=== PATIENT | female | born 1975 | race Caucasian/White ===

== ENCOUNTER 2018-10-04 23:40 | Emergency (ER) | payer MEDICAID, OTHER ==
[~2018-10-04] VITALS: Ht 165.1 cm; Wt 85.4 kg
[2018-10-04 23:50] VITALS: BP 138/80
--- NOTE | 2018-10-04 23:50 | NUR ---
TO BED # 12 AMBULATORY, REPORT GIVEN TO CRISSY ALVAREZ
--- NOTE | 2018-10-04 23:57 | NUR ---
PT TO ED WITH C/O CP X 4 DAYS. PT REPORTS PAIN RADIATING TO L SHOULDER AND NECK. PT DENIES SOB AT THIS TIME. NO EDEMA NOTED. CAP REFILL <3 SECONDS. PT DENIES INJURY OR TRAUMA. PT PLACED INTO BED, PENDING MD JACKSON.
[2018-10-05] MEDS ORDERED: MORPHINE SULFATE 4 MG/ML SYR IM ONE
[2018-10-05] MEDS ORDERED: ASPIRIN 325 MG TAB PO ONE
--- NOTE | 2018-10-05 | NUR ---
PATIENT REFUSED MORPHINE AT THIS TIME, ER MD DR. RUBIO NOTIFIED.
[2018-10-05 00:09] LABS: BASOPHILS # (AUTO) 0.1 K/uL (0.00-0.22); BASOPHILS % (AUTO) 0.7 % (0.0-2.0); EOSINOPHILS # (AUTO) 0.1 K/uL (0-0.4); EOSINOPHILS % (AUTO) 1.9 % (0.0-4.0); HEMATOCRIT 38.4 % (36-48); HEMOGLOBIN 12.7 g/dL (12.0-16.0); LYMPHOCYTES # (AUTO) 2.9 K/uL (2.5-16.5); LYMPHOCYTES % (AUTO) 38.4 % (20.5-51.1); MEAN CORPUSCULAR HEMOGLOBIN 28 pg (27-31); MEAN CORPUSCULAR HGB CONC 33 g/dL (33-37); MEAN CORPUSCULAR VOLUME 85.4 fL (80-94); MONOCYTES # (AUTO) 0.9 K/uL (0.8-1.0); MONOCYTES % (AUTO) 11.7 % (1.7-9.3); NEUTROPHILS # (AUTO) 3.6 K/uL (1.8-7.7); NEUTROPHILS % (AUTO) 47.3 % (42.2-75.2); PLATELET COUNT (AUTO) 200 K/uL (140-450); RED CELL DISTRIBUTION WIDTH 14.4 % (11.6-13.7); WHITE BLOOD COUNT (AUTO) 7.7 K/uL (4.8-10.8)
[2018-10-05 00:40] LABS: ALBUMIN 3.2 g/dL (3.4-5.0); ANION GAP 8.8 (8-16); CARBON DIOXIDE 26.6 mmol/L (21-32); CREATININE 0.9 mg/dL (0.6-1.3); POTASSIUM 3.4 mmol/L (3.5-5.1); TOTAL BILIRUBIN 0.3 mg/dL (0.0-1.0)
[2018-10-05 01:00] VITALS: BP 134/81
== END 2018-10-05 01:00 | disposition home or self-care (01) ==
LOC: MED 23:40
DX: R07.89 Other chest pain (principal)
CPT/HCPCS: 36415; 71045; 80053; 84484; 85025; 99284; Q0092; 93005; J2270

== ENCOUNTER 2021-07-27 07:53 | Inpatient (IN) | payer OTHER, SELFPAY ==
[~2021-07-27] VITALS: Ht 154.9 cm; Wt 90.7 kg
[2021-07-27 08:08] VITALS: BP 110/63
--- NOTE | 2021-07-27 08:17 | NUR ---
URINE SAMPLE COLLECTED. SPECIMEN IN DIRTY UTILITY.
[2021-07-27] MEDS ORDERED: ACETAMINOPHEN EXTRA STRENGTH 500 MG TAB PO ONE (08:20)
[2021-07-27] MEDS ORDERED: NACL 0.9% 1,000 ML IV ONE (08:20)
[2021-07-27] MEDS ORDERED: ONDANSETRON 4 MG ODT PO ONE (08:20)
[2021-07-27] MEDS ORDERED: KETOROLAC 15 MG/ML VIAL IVP ONE (08:20)
[2021-07-27 09:04] LABS: BASOPHILS % (AUTO) 0.4 % (0.0-2.0); EOSINOPHILS % (AUTO) 0.1 % (0.0-4.0); HEMATOCRIT 38.3 % (36-48); HEMOGLOBIN 12.8 g/dL (12.0-16.0); LYMPHOCYTES # (AUTO) 1.9 K/uL (2.5-16.5); LYMPHOCYTES % (AUTO) 14.1 % (20.5-51.1); MEAN CORPUSCULAR HEMOGLOBIN 28 pg (27-31); MEAN CORPUSCULAR HGB CONC 33 g/dL (33-37); MEAN CORPUSCULAR VOLUME 83.2 fL (80-94); MONOCYTES # (AUTO) 1.6 K/uL (0.8-1.0); MONOCYTES % (AUTO) 12.2 % (1.7-9.3); NEUTROPHILS # (AUTO) 9.8 K/uL (1.8-7.7); NEUTROPHILS % (AUTO) 73.2 % (42.2-75.2); PLATELET COUNT (AUTO) 251 K/uL (140-450); RED CELL DISTRIBUTION WIDTH 14.6 % (11.6-13.7); WHITE BLOOD COUNT (AUTO) 13.4 K/uL (4.8-10.8)
[2021-07-27 09:46] LABS: ALBUMIN 3.3 g/dL (3.4-5.0); ANION GAP 13.7 (8-16); CARBON DIOXIDE 24.5 mmol/L (21-32); POTASSIUM 3.2 mmol/L (3.5-5.1); TOTAL BILIRUBIN 0.4 mg/dL (0.0-1.0)
[2021-07-27] MEDS ORDERED: POTASSIUM CHLORIDE 10 MEQ TABER PO ONE (11:05)
--- NOTE | 2021-07-27 11:39 | NUR ---
PT AMBULATED TO ER BED 13.
[2021-07-27] MEDS ORDERED: POTASSIUM CHLORIDE 10 MEQ TABER PO PRN (11:45)
[2021-07-27] MEDS ORDERED: ACETAMINOPHEN 325 MG TAB PO PRN (11:45)
[2021-07-27] MEDS ORDERED: ONDANSETRON 4 MG/2 ML VIAL IM/IVP PRN (11:45)
[2021-07-27] MEDS ORDERED: HYDROcodone/APAP 7.5/325 MG 1 TAB PO PRN (11:45)
[2021-07-27] MEDS ORDERED: ZOLPIDEM 5 MG TAB PO PRN (11:45)
[2021-07-27] MEDS ORDERED: DOCUSATE SODIUM 100 MG GELCAP PO PRN (11:45)
[2021-07-27] MEDS ORDERED: guaiFENesin DM 200/20 MG-10 ML 10 ML UDC PO PRN (11:45)
[2021-07-27] MEDS ORDERED: cefTRIAXone 1,000 MG VIAL ONE (11:49)
--- NOTE | 2021-07-27 12:15 | NUR ---
DR. NAVA AT PATIENT BEDSIDE.
--- NOTE | 2021-07-27 12:17 | NUR ---
XRAY AT PATIENT BEDSIDE
--- NOTE | 2021-07-27 12:19 | NUR ---
PATIENT ESCORTED TO XRAY VIA WHEELCHAIR
[2021-07-27 12:22] LABS: APPEARANCE,URINE SL CLOUDY (CLEAR); BILIRUBIN,URINE NEGATIVE (NEGATIVE); BLOOD, URINE 1+ (NEGATIVE); COLOR,URINE YELLOW (YELLOW); LEUKOCYTE ESTERASE ,URINE 1+ (NEGATIVE); NITRITE, URINE POSITIVE (NEGATIVE); PH,URINE 6.5 (5.0-9.0); UGLUCOSE NEGATIVE (NEGATIVE)
--- NOTE | 2021-07-27 12:23 | NUR ---
PATIENT ESCORTED BACK TO BED.
[2021-07-27 12:34] LABS: WBC,URINE 16-25 (MOD) /HPF (0-5)
[2021-07-27 12:37] LABS: URINE AMORPHOUS URATE 1+ /HPF (None Seen)
[2021-07-27] MEDS: KETOROLAC 30 MG/ML VIAL IVP SCH ×2 (13:00→21:52)
[2021-07-27 13:34] LABS: PROTHROMBIN TIME 11.6 secs (10.8-13.4)
[2021-07-27 13:46] LABS: CHOL/HDL RATIO 4.5 (1-4.5); FREE T4 (FREE THYROXINE) 1.25 ng/dL (0.76-1.46); MAGNESIUM 1.6 mg/dL (1.8-2.4); PHOSPHORUS 3.7 mg/dL (2.5-4.9); THYROID STIMULATING HORMONE 1.29 uIU/mL (0.34-3.74)
--- NOTE | 2021-07-27 14:00 | NUR ---
[facility] SPECIMEN COLLECTED AND TAKEN TO LAB
[2021-07-27] MEDS: NACL 0.9% 1,000 ML IV SCH (16:03)
--- NOTE | 2021-07-27 19:27 | NUR ---
Pt report given to KADEEM RAMOS. Transfer of care at this time.
--- NOTE | 2021-07-28 00:09 | NUR ---
pt walked to restroom. gait was steady and even
--- NOTE | 2021-07-28 00:24 | NUR ---
PT AMBULATED TO BATHROOM. STEADY AND EVEN GAIT
[2021-07-28] MEDS: NACL 0.9% 1,000 ML IV SCH ×2 (02:03→10:17)
--- NOTE | 2021-07-28 03:59 | NUR ---
Patient appears to be sleeping comfortably in bed. Vital Signs within normal limits. Respirations even and unlabored. x2 side rails up for safety.
[2021-07-28 06:07] LABS: T4 (THYROXINE) 8.7 ug/dL (4.5-12.0)
--- NOTE | 2021-07-28 07:15 | NUR ---
Report and continuation of care received from ANTONIO Mckee.
--- NOTE | 2021-07-28 07:35 | NUR ---
Received patient resting in semi-fowlers position. compliance monitor in place. Patient denies pain, nausea, vomiting. Bed locked in lowest position, side rails x 1.
[2021-07-28] MEDS ORDERED: KETOROLAC 30 MG/ML VIAL ONE (07:56)
[2021-07-28] MEDS: KETOROLAC 30 MG/ML VIAL IVP SCH (08:13)
[2021-07-28] MEDS ORDERED: PANTOPRAZOLE 40 MG TABEC PO SCH (09:00)
--- NOTE | 2021-07-28 09:24 | NUR ---
PATIENT HAS BEEN SCREENED AND CATEGORIZED MODERATE NUTRITION RISK. PATIENT WILL BE SEEN WITHIN 3-5 DAYS OF ADMISSION. 07/30/2021-08/01/[address]
[2021-07-28] MEDS ORDERED: cefTRIAXone 1,000 MG VIAL ONE (09:55)
--- NOTE | 2021-07-28 10:30 | NUR ---
Patient resting in semi-fowlers position. hospital monitor in place. VSS. Equal chest rise and fall. Bed locked in lowest position, side rails x 1.
[2021-07-28 11:23] LABS: BASOPHILS % (AUTO) 0.3 % (0.0-2.0); EOSINOPHILS % (AUTO) 0.1 % (0.0-4.0); HEMATOCRIT 34.3 % (36-48); LYMPHOCYTES # (AUTO) 1.3 K/uL (2.5-16.5); LYMPHOCYTES % (AUTO) 11.4 % (20.5-51.1); MEAN CORPUSCULAR HEMOGLOBIN 27 pg (27-31); MEAN CORPUSCULAR HGB CONC 32 g/dL (33-37); MEAN CORPUSCULAR VOLUME 84.6 fL (80-94); MONOCYTES # (AUTO) 1.6 K/uL (0.8-1.0); MONOCYTES % (AUTO) 13.4 % (1.7-9.3); NEUTROPHILS # (AUTO) 8.9 K/uL (1.8-7.7); NEUTROPHILS % (AUTO) 74.8 % (42.2-75.2); PLATELET COUNT (AUTO) 221 K/uL (140-450); RED BLOOD CELL COUNT(AUTO) 4.06 MIL/uL (4.20-5.40); RED CELL DISTRIBUTION WIDTH 14.6 % (11.6-13.7); WHITE BLOOD COUNT (AUTO) 11.8 K/uL (4.8-10.8)
[2021-07-28 11:46] LABS: ANION GAP 14.7 (8-16); CARBON DIOXIDE 21.7 mmol/L (21-32); CREATININE 0.7 mg/dL (0.6-1.3); POTASSIUM 3.4 mmol/L (3.5-5.1)
--- NOTE | 2021-07-28 12:34 | NUR ---
Pt ambulated to restroom with steady/even gait.
--- NOTE | 2021-07-28 12:40 | NUR ---
Returned from restroom; placed back onto drill runner. Bed locked in lowest position, side rails x 1.
--- NOTE | 2021-07-28 14:14 | NUR ---
Patient sitting upright in bed. teletypesetter monitor in place. VSS. Equal chest rise and fall. Bed locked in lowest position, side rails x 1.
[2021-07-28] MEDS ORDERED: CLIN300C2 PO (14:52)
[2021-07-28] MEDS ORDERED: LACT1CAP63 PO (14:52)
[2021-07-28] MEDS ORDERED: CEPH-588 PO (14:52)
[2021-07-28 16:07] VITALS: BP 111/65
[2021-07-28 16:24] VITALS: BP 115/70
--- NOTE | 2021-07-28 16:24 | NUR ---
PT DC PER MD ORDER. IV REMOVED NO ACTIVE BLEEDING NOTED. NAD. STABLE ON DC
== END 2021-07-28 16:24 | disposition home or self-care (01) | DRG 871 ==
LOC: MED 07:53 → MTU 12:41
PROVIDERS: ADMIT Family Medicine; ATTEND Family Medicine
DX: A41.9 Sepsis, unspecified organism (principal); G93.41 Metabolic encephalopathy; N12 Tubulo-interstitial nephritis, not specified as acute or chronic; E87.1 Hypo-osmolality and hyponatremia; E44.1 Mild protein-calorie malnutrition; E87.6 Hypokalemia; R74.01 Elevation of levels of liver transaminase levels; Z20.822 Contact with and (suspected) exposure to COVID-19; Z68.37 Body mass index [BMI] 37.0-37.9, adult
CPT/HCPCS: 36415; 71045; 80048; 80053; 81001; 82150; 83036; 83605; 83690; 83735; 83880; 84100; 84436; 84439; 84443; 84479; 85025; 85610; 85730; 87040; 96361; 96374; 96375; 99291; J0696; J1885; J7060; Q0162

== ENCOUNTER 2022-02-18 16:46 | Emergency (ER) | payer OTHER ==
[~2022-02-18] VITALS: Ht 167.6 cm; Wt 87.1 kg
[~2022-02-18 16:46] MED LIST: CEPH-588 PO; CLIN300C2 PO; LACT1CAP63 PO
[2022-02-18 16:55] VITALS: BP 122/76
--- NOTE | 2022-02-18 17:15 | NUR ---
46YO FEMALE PT C/O DULL 5/10 EPIGASTRIC PAIN W/ RADIATION TO PELVIC X4DAYS. PT STATES COMING FROM [facility] W/ PCP WHO RECOMMENDED HER TO COME TO ER FOR POSSIBLE "CHOLECYSTITIS". PT STATES FEELING "BLOATED" . CURRENTLY NAUSEOUS , DENIES V/D,DYSURIA , CHEST PAIN OR SOB. PT ABDOMEN ACTIVE X4, PRESENTS NON DISTENDED OR TENDER TO TOUCH. PT AAOX4, NO VISIBLE DISTRESS. RESPIRATIONS EVEN AND UNLABORED. [place] SPEAKING HX: DENIES NKA
--- NOTE | 2022-02-18 17:22 | NUR ---
us at bedside
[2022-02-18 17:28] LABS: BASOPHILS % (AUTO) 0.3 % (0.0-2.0); EOSINOPHILS # (AUTO) 0.1 K/uL (0-0.4); EOSINOPHILS % (AUTO) 1.3 % (0.0-4.0); HEMATOCRIT 37.8 % (36-48); HEMOGLOBIN 12.3 g/dL (12.0-16.0); LYMPHOCYTES # (AUTO) 2.7 K/uL (2.5-16.5); LYMPHOCYTES % (AUTO) 34.8 % (20.5-51.1); MEAN CORPUSCULAR HEMOGLOBIN 28 pg (27-31); MEAN CORPUSCULAR HGB CONC 33 g/dL (33-37); MEAN CORPUSCULAR VOLUME 85.6 fL (80-94); MONOCYTES # (AUTO) 0.8 K/uL (0.8-1.0); MONOCYTES % (AUTO) 10.4 % (1.7-9.3); NEUTROPHILS # (AUTO) 4.1 K/uL (1.8-7.7); NEUTROPHILS % (AUTO) 53.2 % (42.2-75.2); PLATELET COUNT (AUTO) 223 K/uL (140-450); RED BLOOD CELL COUNT(AUTO) 4.42 MIL/uL (4.20-5.40); WHITE BLOOD COUNT (AUTO) 7.6 K/uL (4.8-10.8)
[2022-02-18] MEDS: ONDANSETRON 4 MG/2 ML VIAL IVP ONE (17:32)
[2022-02-18] MEDS: KETOROLAC 30 MG/ML VIAL IVP ONE (17:33)
[2022-02-18 17:36] LABS: APPEARANCE,URINE CLEAR (CLEAR); BILIRUBIN,URINE NEGATIVE (NEGATIVE); BLOOD, URINE NEGATIVE (NEGATIVE); COLOR,URINE YELLOW (YELLOW); LEUKOCYTE ESTERASE ,URINE NEGATIVE (NEGATIVE); NITRITE, URINE NEGATIVE (NEGATIVE); UGLUCOSE NEGATIVE (NEGATIVE)
[2022-02-18 17:43] LABS: ALBUMIN 3.8 g/dL (3.4-5.0); ANION GAP 12.2 (8-16); CARBON DIOXIDE 28.6 mmol/L (21-32); CREATININE 0.8 mg/dL (0.6-1.3); POTASSIUM 3.8 mmol/L (3.5-5.1); TOTAL BILIRUBIN 0.2 mg/dL (0.0-1.0)
[2022-02-18] MEDS ORDERED: ONDA8TAB87 PO (19:11)
[2022-02-18] MEDS ORDERED: IBUP-2213 PO (19:11)
[2022-02-18] MEDS ORDERED: OMEP40EC24 PO (19:11)
[2022-02-18 19:25] VITALS: BP 135/76
--- NOTE | 2022-02-18 19:25 | NUR ---
Note undone in EDM - 02/18/22 at 1926 by PHSEP Patient discharged with v/s stable. Written and verbal after care instructions FOR ABDOMINAL PAIN given and explained. Patient alert, oriented and verbalized understanding of instructions. Ambulatory with steady gait. All questions addressed prior to discharge. ID band removed. Patient advised to follow up with PMD. Rx of IBUPROFEN, ZOFRAN, PRILOSEC given. Opportunity to ask questions provided and answered. COPY OF CT PROVIDED
== END 2022-02-18 19:25 | disposition home or self-care (01) ==
LOC: MED 16:46
DX: R10.13 Epigastric pain (principal); Z90.49 Acquired absence of other specified parts of digestive tract; Z79.899 Other long term (current) drug therapy; Z98.890 Other specified postprocedural states
CPT/HCPCS: 36415; 76705; 80053; 81003; 81025; 83690; 85025; 96374; 99285; J2405; Q0092; J1885

== ENCOUNTER 2022-09-23 19:27 | Emergency (ER) | payer OTHER ==
[~2022-09-23] VITALS: Ht 162.6 cm; Wt 72.6 kg
[~2022-09-23 19:27] MED LIST changes: +IBUP-2213 PO; +OMEP40EC24 PO; +ONDA8TAB87 PO
[2022-09-23 19:35] VITALS: BP 142/70
[2022-09-23 20:21] LABS: BASOPHILS # (AUTO) 0.1 K/uL (0.00-0.22); BASOPHILS % (AUTO) 0.6 % (0.0-2.0); EOSINOPHILS # (AUTO) 0.2 K/uL (0-0.4); EOSINOPHILS % (AUTO) 1.9 % (0.0-4.0); HEMOGLOBIN 13.2 g/dL (12.0-16.0); LYMPHOCYTES # (AUTO) 2.8 K/uL (2.5-16.5); LYMPHOCYTES % (AUTO) 31.5 % (20.5-51.1); MEAN CORPUSCULAR HEMOGLOBIN 28 pg (27-31); MEAN CORPUSCULAR HGB CONC 33 g/dL (33-37); MONOCYTES % (AUTO) 11.3 % (1.7-9.3); NEUTROPHILS # (AUTO) 4.9 K/uL (1.8-7.7); NEUTROPHILS % (AUTO) 54.7 % (42.2-75.2); PLATELET COUNT (AUTO) 229 K/uL (140-450); RED CELL DISTRIBUTION WIDTH 14.4 % (11.6-13.7); WHITE BLOOD COUNT (AUTO) 8.9 K/uL (4.8-10.8)
[2022-09-23 20:34] LABS: ANION GAP 11.5 (8-16); CARBON DIOXIDE 28.3 mmol/L (21-32); CHLORIDE 104 mmol/L (98-107); CREATININE 0.8 mg/dL (0.6-1.3); GFR ARICAN-AMERICAN 98 mL/min (>90); GLUCOSE 103 mg/dL (74-106); POTASSIUM 3.8 mmol/L (3.5-5.1); SODIUM SERUM 140 mmol/L (136-145); UREA NITROGEN, BLOOD 14 mg/dL (7-18)
[2022-09-23 20:43] LABS: BILIRUBIN,URINE NEGATIVE (NEGATIVE); BLOOD, URINE TRACE-I (NEGATIVE); LEUKOCYTE ESTERASE ,URINE 1+ (NEGATIVE); NITRITE, URINE NEGATIVE (NEGATIVE); PH,URINE 6.5 (5.0-9.0); UGLUCOSE NEGATIVE (NEGATIVE)
[2022-09-23 20:43] LABS: ALBUMIN 3.8 g/dL (3.4-5.0); ASPARTATE AMINOTRANSFERASE 19 U/L (15-37); LIPASE 126 U/L (73-393); TOTAL BILIRUBIN 0.2 mg/dL (0.0-1.0)
[2022-09-23 20:47] LABS: APPEARANCE,URINE HAZY (CLEAR); COLOR,URINE STRAW (YELLOW)
[2022-09-23] MEDS ORDERED: ACETAMINOPHEN EXTRA STRENGTH 500 MG TAB PO ONE (20:55)
[2022-09-23] MEDS ORDERED: IBUPROFEN 600 MG TAB PO ONE (20:55)
[2022-09-23 21:07] LABS: RBC,URINE 0-5 /HPF (0-5)
--- NOTE | 2022-09-23 21:51 | NUR ---
PT TO BED #11
[2022-09-23] MEDS ORDERED: IBUPROFEN 600 MG TAB ONE (22:07)
[2022-09-23] MEDS ORDERED: ACETAMINOPHEN EXTRA STRENGTH 500 MG TAB ONE (22:07)
--- NOTE | 2022-09-23 22:10 | NUR ---
Pt medicated as ordered. Tolerated well.
[2022-09-23 22:20] VITALS: BP 155/77
--- NOTE | 2022-09-23 22:30 | NUR ---
Covid/Influenza swabs collected and sent to lab.
[2022-09-23] MEDS ORDERED: IBUP-2213 PO (22:47)
[2022-09-23] MEDS ORDERED: ACET-10509 PO (22:47)
--- NOTE | 2022-09-23 23:01 | NUR ---
Patient discharged with v/s stable. Written and verbal after care instructions given and explained. Patient verbalized understanding. Ambulatory with steady gait. All questions addressed prior to discharge. Advised to follow up with PMD.
== END 2022-09-23 23:01 | disposition home or self-care (01) ==
LOC: MED 19:27
DX: J06.9 Acute upper respiratory infection, unspecified (principal); Z20.822 Contact with and (suspected) exposure to COVID-19; R07.89 Other chest pain; Z79.899 Other long term (current) drug therapy
CPT/HCPCS: 36415; 71045; 80053; 81001; 81025; 83690; 84484; 85025; 87086; 93005; 99285